=== PATIENT | female | born 1960 | race African-American/Black ===

== ENCOUNTER → 2017-04-12 | Outpatient (CLI) | payer OTHER ==
[~2017-04-12] MED LIST: ASPIRIN E.C. 8181 MG PO; FLUTICASON0.05 MG/Ac NS; HCTZ; LISINOPRIL; PROVENTIL0.09 MG/A1 IH; SEREVENT IH; UNSURE OF MEDS
== END ==
LOC: COL.RAD 11:56
DX: S46.811A Strain of other muscles, fascia and tendons at shoulder and upper arm level, right arm, initial encounter (principal); M19.011 Primary osteoarthritis, right shoulder